=== PATIENT | male | born 1995 | race Caucasian/White ===

== ENCOUNTER 2024-02-10 03:01 | Emergency (ER) | payer SELFPAY ==
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
[2024-02-10 03:04] VITALS: BP 134/66; PULSE 127; RESP 16; TEMP 36.6; O2SAT 97
--- NOTE | 2024-02-10 03:14 | PC.NURSE ---
rian centeno at bedside for pd assessment.
[2024-02-10] MEDS: TETANUS,DIPHTHERIA,AC PERTUSSIS ADULT (0.5 ML) BOOSTRIX IM (03:20)
--- NOTE | 2024-02-10 04:14 | PC.NURSE ---
lac repair set up completed by arlen kruger
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
[2024-02-10] MEDS: LIDOCAINE HCL 1% LOCAL INJ 10 ML VIAL (04:25)
[2024-02-10] MEDS: CEPHALEXIN 500 MG CAPSULE PO (04:48)
[2024-02-10] MEDS: oxyCODONE/ACETAMINOPHEN (*CRX) 10-325 MG TABLET 1 TAB PO (04:48)
[2024-02-10 04:54] VITALS: BP 120/68; PULSE 66; RESP 16; TEMP 37.2; O2SAT 98
--- NOTE | 2024-02-10 04:54 | PC.NURSE ---
edp sutured hand, applied non stick telfa and coban, no distress noted.
== END 2024-02-10 04:56 | disposition home or self-care (01) ==
PROVIDERS: Emergency Provider Emergency Medicine
DX: S61.412A Laceration without foreign body of left hand, initial encounter (principal); W32.0XXA Accidental handgun discharge, initial encounter; Z23 Encounter for immunization
CPT/HCPCS: 12001; 73130; 90471; 90715; 99283; A9270; J2003

== ENCOUNTER 2024-02-13 17:47 | Emergency (ER) | payer BC, SELFPAY ==
[2024-02-13 17:58] VITALS: BP 103/88; PULSE 107; RESP 16; TEMP 36.4; O2SAT 100
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
[2024-02-13] MEDS: HYDROcodone/acetaminophen (*CRX) 5-325 MG TABLET 1 TAB PO (18:36)
== END 2024-02-13 18:43 | disposition home or self-care (01) ==
PROVIDERS: Emergency Provider Physician Assistant
DX: S61.412D Laceration without foreign body of left hand, subsequent encounter (principal); W34.00XD Accidental discharge from unspecified firearms or gun, subsequent encounter
CPT/HCPCS: 99283; A9270

== ENCOUNTER 2024-12-24 18:46 | Emergency (ER) | payer SELFPAY ==
--- NOTE | ~2024-12-24 | CT_ITS ---
EXAMINATION: CT pelvis w con DATE: 12/24/2024 21:04 INDICATION: Gluteal abscess TECHNIQUE: Computed tomography (CT) of the pelvis was performed with 100 cc Omnipaque 350 intravenous contrast. The dose-length product was 515.90 mGy-cm. Automated exposure control and iterative reconstruction technique were employed. COMPARISON: No prior studies for comparison. FINDINGS: There is a left medial gluteal abscess with wall enhancement measuring 6.5 x 4.8 x 2.5 cm. This does not appear to communicate with the rectum. Bowel pattern nonobstructive. No abnormal pelvic masses. No acute osseous abnormality. IMPRESSION: 1. Left gluteal abscess extending posteriorly to the skin surface measuring up to 6.5 cm greatest dimension. Reviewed, dictated and finalized at location O.
--- OUTSIDE RECORDS SUMMARY | 2024-12-24 18:49 | XMS_ITS | Clinical Summary ---
Author Organization [facility] Address [address] [place] [address] Care Team Providers Care Automobile Brakes Bonder Name Role Phone Unavailable Primary Care Provider Unavailabl e Source Comments [facility],non-owned Affiliates and Associated Physician Practices is amultiple site organization consisting of ambulatory clinics and hospital sitesin [place], [place], [place] and [place]. This disclosure is being madepursuant to the Care Everywhere program and may not contain all information available regarding this patient. Last updated 18.[employer] [facility] Allergies Active Allergy Reactions Criticality Noted Date Comments Clindamycin 03/01/2011 hives Medications * Be aware that medications may not be up to date on this document. Alwaysverify current medications with the patient. lisdexamfetamin e (VYVANSE) 30 MG capsule Take 1 Cap by mouth every morning 30 Cap 0 6 Active Additional Information Patient not taking.Reported on 12/22/2015 minocycline (MINOCIN) 100 MG capsule Take 1 Cap by mouth 2 times daily 60 Cap 3 7 Active erythromycin (GIA) 2 % pads once daily 60 Each 4 7 Active Active Problems Problem Noted Date Diagnosed Date Acne 12/17/2011 Osteomyelitis 02/25/2011 Overview (03/03/2011): PICC placed 02/27 for prolonged antibiotic therapy 6 weeks of treatment from negative culture -Clindamycin switched to vancomycin following rash with clindamycin. Rash resolved with discontinuation of clindamycin. -Orthopedics will follow vancomycin trough and renal function DVT femoral (deep venous thrombosis) with thromb ophlebitis 02/25/2011 Overview (03/01/2011): - Chest xray with pulmonary nodules on the right, possible pericardial effusion and cardiomegaly. - Lovanox 1mg/kg BID - Heme discussed parents preference for warfarin vs lovenox. Parents would prefer lovenox. -Follow up with hematology in one week Septic joint of right knee joint 02/19/2011 Overview (03/03/2011): Orthopedics continues to follow following drainage in the OR. Effusion and initial blood culture positive for MRSA. Blood cx from 02/22 NGTD. PT worked with patient on gait training and walker provided. Plan: -Continue vancomycin 17.5mg/kg every 6 hours for total of 6 weeks following first negative blood culture - Ortho following and will continue to monitor vanc trough. -Patient to have orthopedics follow up in 1 week, with vanc level, bmp, crp, esr drawn on Saturday after discharge. Results to be called to Isaac Willis. Pericarditis 02/19/2011 Overview (03/01/2011): Assessment: Improvement in his chest pain, tachypnea, and work of breathing. Weaned down to Room air. Echo with stable pericardial effusion and normal ventricular function. Cardiology involved and recommend indomethacin. Plan: - Indomethacin 25mg BID for 2 weeks total - nexium prophylaxis while on indomethacin - f/u echo And cardiology appointment in 2-3 weeks from discharge - Continue antibiotics Abnormal UA 02/19/2011 Overview (03/03/2011): Assessment: UA with 2+ protein, blood, + nitrite and moderate bacteria on UA done on day of admission. No urine culture done at that time. Urine culture done on 02/20 (with another abnormal UA) did not grow anything (though Kannan was given cefotaxime). Despite these findings, Kannan did not have symptoms referable to the urinary tract except perhaps for some intermittent abdominal discomfort. Given his disseminated disease, would consider infectious involvement of the kidney as well or perhaps compromise to renal perfusion as Staph aureus can cause thrombophlebitis. UA on 02/22 with only trace blood and protein. Nephrology following and recommended renal US, which was normal Plan: Follow up urinalysis in 2 weeks to ensure microscopic hematuria has resolved MRSA (methicillin resistant staph aureus) cultur e positive 02/19/2011 Overview (02/21/2011): synovial fluid ADHD (attention deficit hyperactivity disorder) 11/01/2009 Left varicocele 11/01/2009 Resolved Problems Problem Noted Date Diagnosed Date Resolved Date Hyponatremia 02/21/2011 03/05/2015 Overview (03/03/2011): Assessment: Nephrology involved. 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 Na normalized -Resolved Immunizations Immunization Administration Dates Next Due DTaP VACCINE IM (6wk-6yrs) 08/20/2002,,05/31/1998,04/08,01/27/1998 HEP A PEDS 2 DOSE 12/17/2011,10/31/2010 HEP B VACCINE, PED/ADOL 09/08/1998,1997, HIB BOOSTER 05/30/1999, 9,04/08/1998,01/27 Human Papilloma Virus Catalino valent Vaccine 06/08/2013,03/02/2013,12/03/2012 MENINGOCOCCAL ACWY (MCV4P) VAC IM 12/29/2013,03/2011 MMR 08/20/2002,12/09/1998 POLIO IPV 08/20/2002, 0,04/08/1998,01/27 TDAP (7yrs+) 11/12/2008 Family History Medical History Relation Name Comments Hypercholesterolemia Father Rashes/Skin Problems Father Diabetes Maternal Grandfather Type 2 Heart Disease Maternal Grandfather Hypercholesterolemia Maternal Grandfather Hypertension Maternal Grandfather Cancer Maternal Grandmother Lung Anemia Mother Kidney Disease Mother Migraine Mother Asthma Other Mother, MatGM, MatGF, Father, PatGM, & PatGF Depression Other Mother, Father, MatGM, MatGF, PatGM, PatGF Diabetes Paternal Grandfather Type 2 Heart Disease Paternal Grandfather Hypercholesterolemia Paternal Grandfather Hypertension Paternal Grandfather Rashes/Skin Problems Paternal Grandmother Stroke Paternal Grandmother Relation Name Status Comments Father Maternal Grandfather Maternal Grandmother Mother Other Paternal Grandfather Paternal Grandmother Social History Tobacco Use Types Packs/Day Years Used Date Smoking Tobacco: Never Smokeless Tobacco: Never Alcohol Use Standard Drinks/Week Comments No 0 (1 standard drink = 0.6 oz pur e alcohol) Sex and Gender Information Value Date Recorded Sex Assigned at Not on file Legal Sex Male 5:46 AM 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 Gender Identity Not on file Sexual Orientation Not on file Last Filed Vital Signs Vital Sign Reading Time Taken Comments Blood Pressure 112/68 03/04/2015 4:18 PM 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 Pulse 70 03/04/2015 4:18 PM 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 Temperature 36.7 C (98 F) 07/21/2016 10:46 AM CDT Respiratory Rate 20 04/10/2011 8:00 AM 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 Oxygen Saturation 100% 04/10/2011 8:00 AM 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 Inhaled Oxygen Concentration 100% 07/2010 11:00 AM CDT Weight 83.8 kg (184 lb 12.8 oz) 017 10:46 AM CDT Height 179.1 cm (5' 10.5) 07/21/2016 1 0:46 AM CDT Body Mass Index 26.14 07/21/2016 10:46 AM CDT Plan of Treatment Health Maintenance Due Date Last Done Comments HIV SCREENING 2012 HEPATITIS C SCREENING 11/21/2015 DTAP/TDAP/TD VACCINES (7 - Td or Tdap) 11/12/2018 11/12/2008, 08/20/2002, 05/30/1999, Additional history exists DEPRESSION SCREENING 04/22/2024 COVID-19 VACCINE ( season) 2024 INFLUENZA VACCINE (#1) 2024 ZOSTER VACCINE (1 of 2) 11/26/2047 HEPATITIS B VACCINE Completed 09/08/1998, 1997, 1997 HIB VACCINE Completed 05/30/1999, 12/1998, 04/08/1998, Additional history exists HPV VACCINE Completed 06/08/2013, 02/20, 12/03/2012 MENINGOCOCCAL GROUPS A/C/Y/W VACCINE Completed 12/29/2013, 10/31/2010 MENINGOCOCCAL (Group B) VACCINE SHARED DECISION-MAKING Aged Out No longer eligible based on patient's age to complete this topic PNEUMOCOCCAL VACCINE Aged Out No long er eligible based on patient's age to complete this topic Goals Goal Patient Goal Type Associated Problems Recent Progress Patient-Stated? Author Use safety retraint in car Lifestyle On track( 017 10:48 AM CDT) Serenity Drake RN Additional Health Concerns Infection Onset Date Last Indicated MRSA 02/21/2011 02/21/2011 Insurance COMMERCIAL GENERIC
[2024-12-24 19:04] VITALS: BP 131/78; PULSE 104; RESP 18; TEMP 36.5; O2SAT 97
--- OUTSIDE RECORDS SUMMARY | 2024-12-24 19:49 | XMS_ITS | Clinical Summary ---
Author Organization [facility] Address [address] [place] [address] Care Team Providers Care Preconstruction Manager Name Role Phone Unavailable Primary Care Provider Unavailabl e Source Comments [facility],non-owned Affiliates and Associated Physician Practices is amultiple site organization consisting of ambulatory clinics and hospital sitesin [place], [place], [place] and [place]. This disclosure is being madepursuant to the Care Everywhere program and may not contain all information available regarding this patient. 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
[2024-12-24] MEDS: HYDROcodone/acetaminophen (*CRX) 5-325 MG TABLET 2 TAB PO (19:55)
[2024-12-24] MEDS: SODIUM CHLORIDE 0.9% IV 1,000 ML 999 ML IV CONT (19:55)
[2024-12-24 20:03] LABS: Hematocrit 47.7 % (42.0-52.0); Hemoglobin 16.5 g/dL (14.0-18.0); Immature Granulocyte Percent A 0.3 % (0-0.5); Lymphocytes Absolute Auto 1.93 K/mm3 (0.9-3.2); Mean Corpuscular HGB Conc 34.6 g/dl (32-36); Mean Corpuscular Hemoglobin 30.0 pg (26-34); Mean Corpuscular Volume 86.7 fl (80-100); Nucleated Red Blood Cells Absolute Auto 0.000 K/mm3 (0.0-0.012); Nucleated Red Blood Cells Perc 0.0 % (0.0-0.2); Platelet Count Result 281 k/mm3 (150-375); Red Blood Count 5.50 M/mm3 (4.6-6.20); White Blood Count 10.1 K/mm3 (4.5-10.0)
--- NOTE | 2024-12-24 20:11 | ED_ITS ---
HPI - General Adult General Chief complaint: Skin/Abscess/Foreign Body Stated complaint: boil on buttock Time Seen by Provider: 12/24/24 19:31 History of Present Illness HPI narrative: This is a 29-year-old male presenting ED with abscess on his buttocks. He has noticed a painful growing over over the left glute for the last 7 or so days. Is painful to touch. No systemic signs of illness. No history of abscesses. Related Data Allergies Allergy/AdvReac Type Severity Reaction Status Date / Time clindamycin Allergy Hives Verified 12/24/24 19:08 Exam 2 Narrative: APPEARANCE: No apparent distress. Head: atraumatic. EYES: EOMI, NOSE: Atraumatic NECK: Trachea midline RESPIRATORY: No increased rate of breathing to auscultation CARDIOVASCULAR: RRR, no peripheral edema ABDOMINAL: Non-distended soft nontender MUSCULOSKELETAl: No obvious deformities NEURO: Alert. Moving 4/4 extremities SKIN:: Large area of induration central fluctuance over the left glute PSYCHIATRIC: Normal affect Course Vital Signs Vital signs: Vital Signs Temperature 97.7 F 12/24/24 19:04 Pulse Rate 104 H 12/24/24 19:04 Respiratory Rate 18 12/24/24 19:04 Blood Pressure 131/78 12/24/24 19:04 Pulse Oximetry 97 12/24/24 19:04 Oxygen Delivery Room Air 12/24/24 19:04 Temperature 97.7 F 12/24/24 19:04 Pulse Rate 104 H 12/24/24 19:04 Respiratory Rate 18 12/24/24 19:04 Blood Pressure 131/78 12/24/24 19:04 Pulse Oximetry 97 12/24/24 19:04 Oxygen Delivery Room Air 12/24/24 19:04 Procedures Abscess I/D other: Date of Incision: 12/24/24 Side (if applicable): left Local Anesthetic: bupivacaine 0.25% Amount of anesthesia used (mL): 10 Technique: incised with #11 blade Amount of fluid expressed (mL): 20 Irrigation: Yes Packing used?: iodoform I&D Results: Pus and Blood Medical Decision Making MDM Narrative Medical decision making narrative: -Course: 29-year-old male presenting with gluteal abscess. CT pelvis ordered to evaluate depth and it does not appear to connect with the rectum. Incision and drainage was performed. Patient will be discharged on Bactrim. Given pcp/general surgery f/u. -DDX includes but is not limited to: Gluteal abscess, rectal abscess Vital Signs Vital Signs: Vital Signs Temperature 97.7 F 12/24/24 19:04 Pulse Rate 104 H 12/24/24 19:04 Respiratory Rate 18 12/24/24 19:04 Blood Pressure 131/78 12/24/24 19:04 Pulse Oximetry 97 12/24/24 19:04 Oxygen Delivery Room Air 12/24/24 19:04 Temperature 97.7 F 12/24/24 19:04 Pulse Rate 104 H 12/24/24 19:04 Respiratory Rate 18 12/24/24 19:04 Blood Pressure 131/78 12/24/24 19:04 Pulse Oximetry 97 12/24/24 19:04 Oxygen Delivery Room Air 12/24/24 19:04 Lab Data 12/24/24 19:57 12/24/24 19:57 Labs: Lab Results 12/24/24 Range/Units 19:57 WBC 10.1 H (4.5-10.0) K/mm3 RBC 5.50 (4.6-6.20) M/mm3 Hgb 16.5 (14.0-18.0) g/dL Hct 47.7 (42.0-52.0) % MCV 86.7 (80-100) fl MCH 30.0 (26-34) pg MCHC 34.6 (32-36) g/dl RDW 11.7 (11.5-14.5) % Plt Count 281 (150-375) k/mm3 MPV 9.4 (7.4-10.4) fl Immature Gran % (Auto) 0.3 (0-0.5) % Neut % (Auto) 69.2 (45.5-73.1) % Lymph % (Auto) 19.0 (18.3-44.2) % [place] % (Auto) 9.3 H (2.6-8.5) % Eos % (Auto) 1.5 (0-4.4) % Baso % (Auto) 0.7 (0.2-1.2) % Lymph # (Auto) 1.93 (0.9-3.2) K/mm3 [place] # (Auto) 0.9 H (0.1-0.6) K/mm3 Eos # (Auto) 0.2 (0-0.3) K/mm3 Baso # (Auto) 0.1 (0.0-0.1) K/mm3 Abs Immat Gran (auto) 0.03 (0.00-0.031) K/mm3 Absolute Neuts (auto) 7.0 H (1.3-6.7) K/mm3 Absolute Nucleated RBC 0.000 (0.0-0.012) K/mm3 Nucleated RBC % 0.0 (0.0-0.2) % Sodium 138 (137-145) mmol/L Potassium 4.1 (3.4-5.0) mmol/L Chloride 107 (98-107) mmol/L Carbon Dioxide 22 (22-30) mmol/L Anion Gap 9 (4-12) mmol/L BUN 16 (9-20) mg/dL Creatinine 0.95 (0.7-1.3) mg/dL Estim Creat Clear Calc 127 ml/min Estimated GFR > 60 (59 - ) Glucose 88 (65-110) mg/dL Calcium 9.7 (8.4-10.2) mg/dL Total Bilirubin 0.5 (0.2-1.3) mg/dL AST 34 (17-59) U/L ALT 50 (6-50) U/L Alkaline Phosphatase 85 (38-126) U/L Total Protein 8.2 (6.3-8.2) g/dL Albumin 4.5 (3.5-5.1) g/dL Discharge Plan Discharge Clinical Impression: Abscess of skin or subcutaneous tissue Patient Disposition: Home Condition: Stable Instructions: Antibiotic Form, Abscess (ED) Additional Instructions: You were seen in the emergency department for an abscess. Please remove the packing in 24 hours. Please complete the antibiotics as instructed. Please follow-up with the primary care physician or general surgeon listed below. If you develop fevers, severe pain, reaccumulation of fluid in the abscess, or feel your condition is getting worse you can return to the ED for re-evaluation. Patient Language: Wolof Prescriptions: New acetaminophen 500 mg tablet 1,000 mg PO TID PRN (Reason: holly) 7 Days Qty: 42 0RF sulfamethoxazole-trimethoprim 800-160 mg tablet 1 tablet PO Q12H Qty: 14 0RF ibuprofen 800 mg tablet 800 mg PO TID PRN (Reason: pain) 7 Days Qty: 21 0RF No Action ibuprofen 800 mg tablet 800 mg PO TID PRN (Reason: pain) Qty: 20 0RF cephalexin 500 mg capsule 500 mg PO Q12H 5 Days Qty: 10 0RF Follow-up/Referrals: Reuben Odell DO [Physician, Family Practice] - 1 Week Referral Note: Recurrent abscess, wound check - establish pcp PHYSICIAN,ESTATE TAX EXAMINER [Primary Care Provider, Internal Medicine] Ephraim Hightower MD [Physician, General Surgery] - 1 Week Referral Note: Abscess, wound check
[2024-12-24 20:18] LABS: Alanine Aminotransferase 50 U/L (6-50); Albumin Level 4.5 g/dL (3.5-5.1); Alkaline Phosphatase 85 U/L (38-126); Anion Gap 9 mmol/L (4-12); Aspartate Amino Transferase 34 U/L (17-59); Bilirubin,Total 0.5 mg/dL (0.2-1.3); Blood Urea Nitrogen 16 mg/dL (9-20); Calcium 9.7 mg/dL (8.4-10.2); Carbon Dioxide 22 mmol/L (22-30); Chloride 107 mmol/L (98-107); Estimated CRCL calculation 127 ml/min; Estimated Glomerular Filt Rate > 60; Glucose 88 mg/dL (65-110); Potassium 4.1 mmol/L (3.4-5.0); Sodium 138 mmol/L (137-145); Total Protein 8.2 g/dL (6.3-8.2)
[2024-12-24 21:30] VITALS: BP 153/88; PULSE 80; RESP 20; TEMP 36.6; O2SAT 100
== END 2024-12-24 22:13 | disposition home or self-care (01) ==
PROVIDERS: Emergency Provider Emergency Medicine
DX: L02.31 Cutaneous abscess of buttock (principal)
CPT/HCPCS: 10061; 36415; 72193; 80053; 85025; 96360; 99284; A9270; J7030; Q9967